=== PATIENT | male | born 1960 | race Caucasian/White ===

== ENCOUNTER 2019-08-22 07:17 | Emergency (ER) | payer MEDICAID ==
[~2019-08-22] VITALS: Ht 170.2 cm; Wt 81.8 kg
[2019-08-22 07:23] VITALS: Ht 170.2 cm; Wt 81.8 kg
[2019-08-22] MEDS ORDERED: COZAAR25 MG (07:24)
[2019-08-22] MEDS ORDERED: ZANAFLEX4 MG (07:24)
[2019-08-22] MEDS ORDERED: VIBRAMYCIN 100100 MG (07:24)
[2019-08-22] MEDS ORDERED: LIPITOR10 MG (07:24)
[2019-08-22] MEDS ORDERED: CARNITOR 11 GM/10 ML (07:24)
[2019-08-22] MEDS ORDERED: MOBIC7.5 MG (07:24)
[2019-08-22] MEDS ORDERED: OMEPRAZOLE20 M1 (07:24)
[2019-08-22] MEDS ORDERED: ALPHAGAN P15 ML (07:24)
[2019-08-22 07:41] LABS: BASOPHILS 0.3 % (0-2); EOSINOPHILS 0.5 % (0-7); HEMATOCRIT 47.5 % (42.0-54.0); HEMOGLOBIN 16.7 g/dL (13.5-17.5); IMMATURE GRANULOCYTES 0.2 % (0-5); LYMPHOCYTES 11.6 % (15-50); MCH 32.5 pg (26.0-34.0); MCHC 35.2 g/dL (31.0-37.0); MCV 92.4 fL (80.0-100.0); MEAN PLATELET VOLUME 9.3 fL (7.4-10.4); MONOCYTES 5.2 % (2-11); NEUTROPHILS 82.2 % (40-80); PLATELET COUNT 192 10x3/uL (130-400); RBC 5.14 10x6/uL (4.20-6.10); WBC 6.1 10x3/uL (4.8-10.8)
[2019-08-22 07:48] LABS: CALC OSMOLALITY 279 mosm/kg (275-300); CALCIUM 9.1 mg/dL (8.5-10.1); CARBON DIOXIDE 30.2 mmol/L (21.0-32.0); CHLORIDE - SERUM 103 mmol/L (98-107); GLUCOSE 192 mg/dL (74-106); POTASSIUM - SERUM 4.4 mmol/L (3.5-5.1); SODIUM 137 mmol/L (136-145); UREA NITROGEN 15 mg/dL (7-18); eGFR NON AFRICAN AMERICAN 82 mL/min (90-120)
[2019-08-22 07:54] LABS: ALBUMIN 4.2 g/dL (3.4-5.0); ALKALINE PHOSPHATASE 78 U/L (46-116); ALT (SGPT) 31 U/L (10-68); BILIRUBIN - TOTAL 1.59 mg/dL (0.2-1.3); MAGNESIUM - SERUM 1.8 mg/dL (1.8-2.4); PROTEIN - SERUM 7.5 g/dL (6.4-8.2)
[2019-08-22 08:15] LABS: APPEARANCE CLOUDY (CLEAR); BILIRUBIN NEGATIVE (NEGATIVE); COLOR YELLOW (YELLOW); GLUCOSE 500 mg/dL (NEGATIVE); KETONE NEGATIVE (NEGATIVE); NITRITE NEGATIVE (NEGATIVE); PROTEIN TRACE mg/dL (NEGATIVE); SPECIFIC GRAVITY 1.005 (1.005-1.020); UROBILINOGEN NORMAL (NORMAL)
[2019-08-22 08:16] LABS: BACTERIA FEW /hpf (NEGATIVE); EPITHELIAL CELLS RARE /hpf (0-5); RED CELLS - URINE >50 /hpf (0-5); WHITE CELLS - URINE RARE /hpf (NEGATIVE)
[2019-08-22] MEDS ORDERED: LEVOFLOXACIN500 MG PO (08:48)
[2019-08-22 08:51] VITALS: BP 150/87
== END 2019-08-22 08:52 | disposition home or self-care (01) ==
LOC: D.ER 07:17
PROVIDERS: Emergency Medicine
DX: R10.9 Unspecified abdominal pain (principal); R31.9 Hematuria, unspecified; I10 Essential (primary) hypertension; K21.9 Gastro-esophageal reflux disease without esophagitis